=== PATIENT | male | born 1955 | race Caucasian/White ===

== ENCOUNTER 2019-12-02 07:25 | Inpatient (IN) | payer BC, OTHER ==
[~2019-12-02 07:25] MED LIST: CEFAZOLIN 2 GM/D5W RTU 2 GM/50 ML RTUPB IV PRN; LACTATED RINGERS 1000 ML IV PRN; LIDOCAINE 0.5% INJ-PF (5 MG/ML) 50 ML SDV SUBCUT PRN; VANCOMYCIN HCL 1,000 MG in DEXTROSE 5%-WATER 250 ML IV PRN
[2019-12-02] MEDS ORDERED: CELECOXIB 200 MG CAPSULE ONE (08:03)
[2019-12-02] MEDS ORDERED: TRAMADOL HCL 50 MG TABLET ONE (08:03)
[2019-12-02] MEDS ORDERED: CEFAZOLIN 2 GM/D5W RTU 2 GM/50 ML RTUPB IV ONE (08:03)
[2019-12-02] MEDS ORDERED: ACETAMINOPHEN 325 MG TABLET ONE (08:03)
[2019-12-02] MEDS ORDERED: SCOPOLAMINE HYDROBROMIDE 1.5 MG PATCH.TD72 ONE (08:04)
[2019-12-02] MEDS ORDERED: GABAPENTIN 100 MG CAPSULE ONE (08:04)
[2019-12-02] MEDS ORDERED: OXYCODONE HCL SR 10 MG TABLET PO ONE (08:04)
[2019-12-02 08:34] LABS: ALBUMIN 4.5 g/dL (3.5-5.0); C-REACTIVE PROTEIN 9.3 mg/L (<10.0); POTASSIUM 4.5 mmol/L (3.6-5.0)
--- NOTE | 2019-12-02 08:49 | RADIOLOGY REPORT (SQ) ---
EXAM DESCRIPTION: CHEST SINGLE VIEW IMAGES COMPLETED DATE/TIME: 12/02/2019 8:37 am REASON FOR STUDY: PRE OP COMPARISON: None. EXAM PARAMETERS: NUMBER OF VIEWS: One view. TECHNIQUE: Single frontal radiographic view of the chest acquired. RADIATION DOSE: NA LIMITATIONS: None. FINDINGS: LUNGS AND PLEURA: No opacities, masses or pneumothorax. No pleural effusion. MEDIASTINUM AND HILAR STRUCTURES: No masses. Contour normal. HEART AND VASCULAR STRUCTURES: Heart normal in size. Normal vasculature. BONES: No acute findings. HARDWARE: None in the chest. OTHER: No other significant finding. IMPRESSION: NO ACUTE RADIOGRAPHIC FINDING IN THE CHEST. TECHNICAL DOCUMENTATION: JOB ID: [id number] 2010 [employer]- All Rights Reserved Reading location - IP/workstation name: [email or web address]
[2019-12-02 09:23] LABS: APPEARANCE,URINE CLEAR; BILIRUBIN,URINE NEGATIVE (NEGATIVE); COLOR,URINE YELLOW; GLUCOSE, URINE NEGATIVE (NEGATIVE); KETONES,URINE NEGATIVE (NEGATIVE); LEUKOCYTE ESTERASE,URINE NEGATIVE (NEGATIVE); NITRITE,URINE NEGATIVE (NEGATIVE); PROTEIN,URINE NEGATIVE (NEGATIVE); URINE SPECIFIC GRAVITY 1.023; UROBILINOGEN,URINE NEGATIVE mg/dL (<2.0)
[2019-12-02 09:26] LABS: ADD MANUAL MICROSCOPIC YES; RBC,URINE 0-1 /HPF
[2019-12-02 09:27] LABS: BACTERIA,URINE TRACE /HPF
[2019-12-02] MEDS ORDERED: KETAMINE HCL INJ 500 MG/10 ML VIAL ONE (09:49)
[2019-12-02] MEDS ORDERED: FENTANYL CITRATE INJ/PF 100 MCG/2 ML AMPUL ONE (09:50)
[2019-12-02] MEDS ORDERED: MIDAZOLAM 2 MG/2 ML INJ ONE (09:50)
[2019-12-02] MEDS ORDERED: ONDANSETRON HCL INJ/PF 4 MG/2 ML SDV ONE (09:51)
[2019-12-02] MEDS ORDERED: EPHEDRINE SULFATE INJ 50 MG/1 ML AMPULE ONE (09:51)
[2019-12-02] MEDS ORDERED: PROPOFOL INJ 200 MG/20 ML VIAL IV ONE (09:51)
[2019-12-02] MEDS ORDERED: BUPIVACAINE HCL 0.25 % INJ/PF (2.5 MG/1 ML) 30 ML VIAL ONE (09:56)
[2019-12-02] MEDS ORDERED: LIDOCAINE 1% INJ-PF (10 MG/ML) 30 ML SDV ONE (09:56)
[2019-12-02] MEDS ORDERED: VANCOMYCIN HCL INJ 1000 MG VIAL ONE (09:56)
[2019-12-02] MEDS ORDERED: KETOROLAC TROMETHAMINE INJ/PF 30 MG/1 ML SDV ONE (09:57)
[2019-12-02] MEDS ORDERED: TRANEXAMIC ACID INJ/PF 1,000 MG/10 ML SDV ONE (10:04)
[2019-12-02] MEDS ORDERED: MEPERIDINE HCL/PF INJ 25 MG/1 ML DISP.SYRIN IV PRN (11:39)
[2019-12-02] MEDS ORDERED: DIPHENHYDRAMINE HCL 50 MG/ML VIAL IV PRN (11:39)
[2019-12-02] MEDS ORDERED: PROMETHAZINE HCL INJ 25 MG/1 ML VIAL IV PRN ×2 (11:39)
[2019-12-02] MEDS ORDERED: ONDANSETRON HCL INJ/PF 4 MG/2 ML SDV IV PRN (11:39)
[2019-12-02] MEDS ORDERED: OXYCODONE-ACETAMINOPHEN 5-325 MG TABLET PO PRN ×2 (11:39)
[2019-12-02] MEDS ORDERED: MORPHINE SULFATE 10 MG/ML INJ IV PRN ×3 (11:39→13:11)
[2019-12-02] MEDS ORDERED: FENTANYL CITRATE INJ/PF 100 MCG/2 ML AMPUL IV PRN ×3 (11:39)
[2019-12-02] MEDS ORDERED: ROPIVACAINE HCL 0.5% INJ/PF (5 MG/1 ML) 30 ML SDV ONE (11:59)
[2019-12-02] MEDS: FENTANYL CITRATE INJ/PF 100 MCG/2 ML AMPUL ONE ×2 (13:05→13:15)
[2019-12-02] MEDS ORDERED: DOCUSATE SODIUM 100 MG CAPSULE PO PRN (13:11)
[2019-12-02] MEDS ORDERED: TRANEXAMIC ACID INJ/PF 1,000 MG/10 ML SDV IV ONE (13:11)
[2019-12-02] MEDS ORDERED: ZOLPIDEM TARTRATE 5 MG TABLET PO PRN (13:11)
[2019-12-02] MEDS ORDERED: DIPHENHYDRAMINE HCL 25 MG CAPSULE PO PRN (13:11)
[2019-12-02] MEDS ORDERED: PANTOPRAZOLE SODIUM 20 MG TABLET.DR PO ONE (13:11)
[2019-12-02] MEDS ORDERED: OXYCODONE HCL IR 5 MG TABLET PO PRN ×4 (13:11)
[2019-12-02] MEDS ORDERED: ONDANSETRON 4 MG TAB.RAPDIS PO PRN (13:11)
[2019-12-02] MEDS ORDERED: NORMAL SALINE 1000 ML 1,000 ML IV ONE (13:11)
[2019-12-02] MEDS ORDERED: DEXAMETHASONE SOD PHOS INJ 10 MG/1 ML VIAL IV ONE (13:11)
--- NOTE | 2019-12-02 13:11 | Operative Report ---
Operative Report DATE OF SURGERY: 12/02/19 PREOPERATIVE DIAGNOSIS: Severe right hip primary osteoarthritis POSTOPERATIVE DIAGNOSIS: Severe right hip primary osteoarthritis OPERATION: Right total hip arthroplasty SURGEON: ADWOA DESIR JR COMPLICATIONS: None ESTIMATED BLOOD LOSS: 250 cc PROCEDURE: Implants: Lore Accolade 2 size 4 femoral stem with lateral offset, a Trident 2 size 52 cup, and a standard liner, a -2.5 neck length 36 mm ceramic head BRIEF HISTORY: 64 year old male with severe degenerative arthritis of right hip, which has failed conservative treatment and has elected for a total hip arthroplasty. Risks include but are not limited to bleeding, infection, anesthesia, , injury to nerve or vessel, pain, scar, leg length inequality, dislocation, future surgery, and blood clots. Patient read through the pre-op counseling form and signed and consented for surgery on their right hip. OPERATIVE PROCEDURE: Patient was brought to the operating room on and underwent spinal anesthesia. 2 g of Ancef and 1 g of vancomycin was given. After proper anesthesia was obtained, patient was positioned, padded, prepped, and draped in the usual sterile fashion on the operating room table. Appropriate time out was performed. An anterior approach to the hip was undertaken with meticulous hemostasis through the deep interval. A capsulectomy was performed followed by exposure of the femoral neck. The femoral neck was cut in line with the femoral broach and the femoral head was removed. The acetabulum was then exposed with three retractors in an atraumatic fashion. Soft tissue and osteophytes were removed. Medialization reaming was performed followed by anatomic reaming up to accept a 52 mm acetabulum. Wound was irrigated with dilute betadyne solution and the 52 mm acetabulum was impacted into correct position and stability checked by manipulating the impaction handle which rocked the pelvis. A standard liner was impacted into the shell with good stability. Potential impinging osteophytes were removed. Attention was then directed toward the femur, which was exposed with two retractors in an atraumatic fashion. A bone hook was placed to carefully perform releases along the superior capsule until the femur was safely delivered through the wound. A box printer was utilized followed by lateralization rasping and then broaching up to accept a 4 femur. With a standard offset neck and a -5 head, stability was good in flexion and extension with with slight subluxation on external rotation and gentle traction, near equal leg lengths. The real lateral offset femur was impacted into a copiously irrigated femoral canal. A 36 mm ceramic -2.5 neck length head was impacted on a clean dry femoral taper. The hip was irrigated and reduced, further irrigation with antibiotic solution, betadine solution, then antibiotic solution. Bleeders were coagulated with bovie cautery. The fascia was then closed with number 2 Stratofix; the subcutaneous tissue closed with interrupted inverted 2-0 monocryl then running 3-0 monocryl subcuticular. A silver dressing was then applied. All needle sponge and instrument counts were correct. Patient was awakened from sedation anesthesia and taken to recovery room in good condition. The patient has a BMI of 40.3. Due to increased time and effort with the surgery as well as the increased effort of manipulating a large leg, gaining adequate exposure through increased soft tissue, appropriately retracting to ensure lack of trauma to the surrounding soft tissues, and taking extra effort to orient his incision to stay out of the way of his pannus and hip crease, we are billing a 22 modifier.
--- NOTE | 2019-12-02 13:55 | EKG REPORT ---
SEVERITY:- ABNORMAL ECG - SINUS BRADYCARDIA NONSPECIFIC INTRAVENTRICULAR CONDUCTION DELAY : Confirmed by: Abdias Zendejas MD 02-Dec-2019 13:54:27
[2019-12-02] MEDS ORDERED: CEFAZOLIN 2 GM/D5W RTU 2 GM/50 ML RTUPB IV SCH (14:00)
[2019-12-02] MEDS ORDERED: LIDOCAINE 2% INJ-PF (20 MG/ML) 2 ML AMPUL ONE (15:02)
[2019-12-02] MEDS ORDERED: ROCURONIUM BROMIDE INJ 50 MG/5 ML VIAL IV ONE (15:02)
[2019-12-02] MEDS ORDERED: SUCCINYLCHOLINE CHLORIDE INJ 200 MG/10 ML VIAL ONE (15:02)
[2019-12-02] MEDS ORDERED: GLYCOPYRROLATE 1 MG/5 ML VIAL ONE (15:02)
[2019-12-02] MEDS ORDERED: NEOSTIGMINE METHYLSULFATE 10 MG/10 ML VIAL ONE (15:02)
--- NOTE | 2019-12-02 15:02 | RADIOLOGY REPORT (SQ) ---
EXAM DESCRIPTION: HIP RIGHT AP/LATERAL IMAGES COMPLETED DATE/TIME: 12/02/2019 1:36 pm REASON FOR STUDY: post op M16.11 UNILATERAL PRIMARY OSTEOARTHRITIS, RIGHT HIP COMPARISON: None. NUMBER OF VIEWS: Two views. TECHNIQUE: AP pelvis and additional frog legview of the right hip. LIMITATIONS: None. FINDINGS: MINERALIZATION: Normal. RIGHT HIP: Right hip arthroplasty in good position. LEFT HIP: No fracture or dislocation. No worrisome bone lesions. Limited views. PUBIS AND ISCHIUM: No fracture. PELVIS: No fracture. SACRUM: No fracture or dislocation. No worrisome bone lesions. LOWER LUMBAR SPINE: No fracture or dislocation. No worrisome bone lesions. No significant disc disea se. SOFT TISSUES: No findings. OTHER: No other significant finding. IMPRESSION: Right hip arthroplasty. No acute finding. TECHNICAL DOCUMENTATION: JOB ID: [id number] 2010 [employer]- All Rights Reserved Reading location - IP/workstation name: [email or web address]
--- NOTE | 2019-12-02 15:35 | RADIOLOGY REPORT (SQ) ---
EXAM DESCRIPTION: NO CHG FLUORO; HIP IN OPERATING RM IMAGES COMPLETED DATE/TIME: 12/02/2019 3:25 pm REASON FOR STUDY: RIGHT HIP TOTAL ARTHROPLASTY ASSISTED WITH FLUORO IN OR COMPARISON: None. FLUOROSCOPY TIME: No measurable fluoro time recorded. 2 Images saved to PACS LIMITATIONS: None. PROCEDURE: Right hip arthroplasty. FINDINGS: Images from fluoro document the procedure. IMPRESSION: Total arthroplasty the right hip assisted with fluoro. Refer to operative note for furt her information. COMMENT: PQRS 6045F: Fluoroscopy time of the procedure is documented in the report. TECHNICAL DOCUMENTATION: JOB ID: [id number] 2010 [employer]- All Rights Reserved Reading location - IP/workstation name: [email or web address]
--- NOTE | 2019-12-02 15:35 | RADIOLOGY REPORT (SQ) ---
EXAM DESCRIPTION: NO CHG FLUORO; HIP IN OPERATING RM IMAGES COMPLETED DATE/TIME: 12/02/2019 3:25 pm REASON FOR STUDY: RIGHT HIP TOTAL ARTHROPLASTY ASSISTED WITH FLUORO IN OR COMPARISON: None. FLUOROSCOPY TIME: No measurable fluoro time recorded. 2 Images saved to PACS LIMITATIONS: None. PROCEDURE: Right hip arthroplasty. FINDINGS: Images from fluoro document the procedure. IMPRESSION: Total arthroplasty the right hip assisted with fluoro. Refer to operative note for furt her information. COMMENT: PQRS 6045F: Fluoroscopy time of the procedure is documented in the report. TECHNICAL DOCUMENTATION: JOB ID: [id number] 2010 [employer]- All Rights Reserved Reading location - IP/workstation name: [email or web address]
[2019-12-02] MEDS: KETOROLAC TROMETHAMINE INJ/PF 30 MG/1 ML SDV IV SCH ×2 (16:52→22:02)
[2019-12-02] MEDS: ACETAMINOPHEN 325 MG TABLET PO SCH ×2 (16:53→22:02)
[2019-12-02] MEDS: METFORMIN HCL 500 MG TABLET PO SCH (18:21)
[2019-12-02] MEDS: GABAPENTIN 100 MG CAPSULE PO SCH (22:02)
[2019-12-02] MEDS: CEFAZOLIN SODIUM 2 GM in DEXTROSE 5%-WATER 100 ML IV SCH (23:31)
[2019-12-03] MEDS: KETOROLAC TROMETHAMINE INJ/PF 30 MG/1 ML SDV IV SCH ×2 (05:33→14:22)
[2019-12-03] MEDS: CEFAZOLIN SODIUM 2 GM in DEXTROSE 5%-WATER 100 ML IV SCH (05:33)
[2019-12-03] MEDS: ACETAMINOPHEN 325 MG TABLET PO SCH ×3 (05:34→21:00)
[2019-12-03] MEDS ORDERED: TAMSULOSIN HCL 0.4 MG CAP.SR.24H PO ONE ×3 (07:14→15:00)
--- NOTE | 2019-12-03 07:17 | PDOC PROGRESS REPORT ---
Subjective Progress Note for:: 12/03/19 Subjective:: The patient is doing well this AM. Pain is present but not out of proportion and well controlled on their current medications. There are no new symptoms or overnight events. Overall they are felling well without complaints. They deny chest pain, shortness of breath or motor or sensory loss. Patient does have urinary retention overnight. He does not have a history of urinary retention. Reports urgency to void this morning. Reason For Visit: RIGHT TOTAL HIP ARTHROPLASTY Physical Exam Vital Signs: Temp Pulse Resp BP Pulse Ox 97.4 F 65 18 93/49 L 99 12/03/19 03:36 12/03/19 03:36 12/03/19 03:36 12/03/19 03:36 12/03/19 03:36 Intake & Output 12/02/19 12/03/19 12/04/19 06:59 06:59 06:59 Intake Total 5814 Output Total 25 Balance 5789 Weight 257 kg 116.8 kg Physical Exam: Right lower extremity -Pulses 2+ distally -Compartments soft -Sensation grossly intact to L3-4-5 S1 -Motor grossly intact to EHL TA gastroc and quad Wound clean dry and intact No acute distress alert and oriented x3 Results Laboratory Results: 12/02/19 08:03 12/02/19 12/02/19 12/02/19 08:03 08:03 08:49 Potassium 4.5 Glucose 100 C-Reactive Protein 9.3 Albumin 4.5 Urine Color YELLOW Urine Appearance CLEAR Urine pH 6.0 Ur Specific [place] 1.023 Urine Protein NEGATIVE Urine Glucose (UA) NEGATIVE Urine Ketones NEGATIVE Urine Blood NEGATIVE Urine Nitrite NEGATIVE Ur Leukocyte Esterase NEGATIVE Ur Squamous Epith Cells RARE Blood Type O NEGATIVE Antibody Screen NEGATIVE Impressions: Chest X-Ray 12/02/19 00:00 IMPRESSION: NO ACUTE RADIOGRAPHIC FINDING IN THE CHEST. Fluoroscopy 12/02/19 00:00 IMPRESSION: Total arthroplasty the right hip assisted with fluoro. Refer to operative note for further information. Hip X-Ray 12/02/19 00:00 IMPRESSION: Total arthroplasty the right hip assisted with fluoro. Refer to operative note for further information. Hip/Pelvis X-Ray 12/02/19 13:12 IMPRESSION: Right hip arthroplasty. No acute finding. Assessment & Plan - Diagnosis (1) Status post total hip replacement, right Is this a current diagnosis for this admission?: Yes Plan: - 2 doses of Ancef postoperatively q 8 hours to complete 24 hours perioperatively -Weightbearing as tolerated, no precautions, encourage out of bed ANALIA for ADL training - PT/OT -We will plan on discharge after patient voids. - Keep knee extended in bed, rolled towel under the ankle to obtain full extension -aspirin 325 daily for DVT prophylaxis for 6 weeks -multimodal pain management to avoid excessive narcotics, including gabapentin, tramadol, Toradol, acetaminophen. -Dressing should not be removed for 7 to 10 days until seen in the office -May shower with the dressing intact, if it starts to come off she should not get the incision wet. -Follow-up with Dr. Terrance Garcia, orthopedic surgeon at [facility] for surgery, in 10 days. Call for an appointment. . [address], [place] [address] - Time Time Spent with patient: Less than 15 minutes
[2019-12-03] MEDS: TRAMADOL HCL 50 MG TABLET PO PRN (09:57)
[2019-12-03] MEDS: GABAPENTIN 100 MG CAPSULE PO SCH ×2 (09:58→21:00)
[2019-12-03] MEDS: METFORMIN HCL 500 MG TABLET PO SCH ×2 (09:59→17:27)
[2019-12-03] MEDS ORDERED: CHOLECALCIFEROL (D3) 1,000 UNIT (25 MCG) TABLET PO SCH (10:00)
[2019-12-03] MEDS ORDERED: PANTOPRAZOLE SODIUM 20 MG TABLET.DR PO SCH (10:00)
[2019-12-03] MEDS ORDERED: LISINOPRIL 10 MG TABLET PO SCH (10:00)
[2019-12-03] MEDS ORDERED: POLYETHYLENE GLYCOL 3350 POWDER 17 GM/1 PACKET PO SCH (10:00)
[2019-12-03] MEDS: FUROSEMIDE 40 MG TABLET PO SCH (10:00)
[2019-12-03] MEDS ORDERED: CELECOXIB 200 MG CAPSULE PO SCH (10:00)
[2019-12-03] MEDS ORDERED: ASPIRIN 325 MG TABLET PO SCH (10:00)
[2019-12-03] MEDS ORDERED: ASCORBIC ACID 500 MG TABLET PO SCH (10:00)
[2019-12-03] MEDS ORDERED: MULTIVITAMIN TABLET PO SCH (10:00)
[2019-12-03] MEDS ORDERED: (PENDING PHARMACY ID) (Esomeprazole Magnesium [Nexium] 20 MG) PO SCH (10:00)
--- NOTE | 2019-12-03 16:01 | PDOC PROGRESS REPORT ---
Subjective Progress Note for:: 12/03/19 Subjective:: Patient status post right total hip replacement. Overall doing well. Pain controlled. Denies fever chills or sweats. However has been having issues with voiding. Otherwise no complaints. Reason For Visit: RIGHT TOTAL HIP ARTHROPLASTY Physical Exam Vital Signs: Temp Pulse Resp BP Pulse Ox 97.2 F 80 12 151/86 H 96 12/03/19 12:56 12/03/19 12:56 12/03/19 12:56 12/03/19 12:56 12/03/19 12:56 Intake & Output 12/02/19 12/03/19 12/04/19 06:59 06:59 06:59 Intake Total 5814 356 Output Total 25 850 Balance 5789 -494 Weight 257 kg 116.8 kg Musculoskeletal exam: PRESENT: other - Right hip: Dressing clean/dry/intact no erythema or drainage. Moderate thigh swelling without change, intact plantarflexion/dorsiflexion. No sensory deficits. No calf tenderness. Results Laboratory Results: 12/02/19 08:03 Impressions: Chest X-Ray 12/02/19 00:00 IMPRESSION: NO ACUTE RADIOGRAPHIC FINDING IN THE CHEST. Fluoroscopy 12/02/19 00:00 IMPRESSION: Total arthroplasty the right hip assisted with fluoro. Refer to operative note for further information. Hip X-Ray 12/02/19 00:00 IMPRESSION: Total arthroplasty the right hip assisted with fluoro. Refer to operative note for further information. Hip/Pelvis X-Ray 12/02/19 13:12 IMPRESSION: Right hip arthroplasty. No acute finding. Assessment & Plan - Diagnosis (1) Urinary retention Is this a current diagnosis for this admission?: Yes (2) Status post total hip replacement, right Is this a current diagnosis for this admission?: Yes Plan: Patient status post right total hip replacement. Overall doing well in terms of his hip replacement has been ambulating with good results pain currently controlled unfortunately he has developed urinary retention postoperative likely secondary to anesthesia. At this point because of his urinary retention and no prior history of such I have recommended inpatient admission until patient's urinary tension resolves. Will consider consultation to the hospitalist if patient shows no improvement. - Time Time Spent with patient: Less than 15 minutes
[2019-12-04] MEDS: TRAMADOL HCL 50 MG TABLET PO PRN (02:52)
[2019-12-04] MEDS: ACETAMINOPHEN 325 MG TABLET PO SCH (06:21)
[2019-12-04 08:18] VITALS: BP 105/56
[2019-12-04] MEDS: FUROSEMIDE 40 MG TABLET PO SCH (08:21)
[2019-12-04] MEDS: METFORMIN HCL 500 MG TABLET PO SCH (08:21)
--- NOTE | 2019-12-04 08:46 | PDOC PROGRESS REPORT ---
Subjective Progress Note for:: 12/04/19 Subjective:: Patient doing well this morning. Has voided multiple times overnight. No further issues at this time. Reports doing well with getting out of bed and ultimately having a good recovery for his right hip. He remained in house yesterday due to urinary retention which appears to have resolved. Reason For Visit: RIGHT TOTAL HIP ARTHROPLASTY Physical Exam Vital Signs: Temp Pulse Resp BP Pulse Ox 97.8 F 77 17 105/56 L 100 12/04/19 07:56 12/04/19 07:56 12/04/19 07:56 12/04/19 07:56 12/04/19 07:56 Intake & Output 12/03/19 12/04/19 12/05/19 06:59 06:59 06:59 Intake Total 5814 1756 Output Total 25 850 Balance 5789 906 Weight 116.8 kg 116 kg Physical Exam: No acute distress alert and oriented x3 Right lower extremity -Pulses 2+ distally -Compartments soft -Sensation grossly intact to L3-4-5 S1 -Motor grossly intact to EHL TA gastroc and quad Dressing clean dry and intact, mild spotting. Results Laboratory Results: 12/02/19 08:03 Impressions: Chest X-Ray 12/02/19 00:00 IMPRESSION: NO ACUTE RADIOGRAPHIC FINDING IN THE CHEST. Fluoroscopy 12/02/19 00:00 IMPRESSION: Total arthroplasty the right hip assisted with fluoro. Refer to o perative note for further information. Hip X-Ray 12/02/19 00:00 IMPRESSION: Total arthroplasty the right hip assisted with fluoro. Refer to operative note for further information. Hip/Pelvis X-Ray 12/02/19 13:12 IMPRESSION: Right hip arthroplasty. No acute finding. Assessment & Plan - Diagnosis (1) Status post total hip replacement, right Is this a current diagnosis for this admission?: Yes Plan: -Plan for discharge home today. -Weightbearing as tolerated, no precautions, encourage out of bed ANALIA for ADL training - PT/OT - Keep knee extended in bed, rolled towel under the ankle to obtain full extension -aspirin 325 daily for DVT prophylaxis for 6 weeks -multimodal pain management to avoid excessive narcotics, including gabapentin, tramadol, Toradol, acetaminophen. -Dressing should not be removed for 7 to 10 days until seen in the office -May shower with the dressing intact, if it starts to come off she should not get the incision wet. -Follow-up with Dr. Terrance Garcia, orthopedic surgeon at [facility] surgery, in 10 days. Call for an appointment. . [address], [place] [address] - Time Time Spent with patient: Less than 15 minutes
--- NOTE | 2019-12-04 08:54 | PDOC DISCHARGE SUMMARY ---
Impression - Admit/DC Date/PCP Discharge Date: 12/04/19 - Discharge Diagnosis (1) Status post total hip replacement, right Is this a current diagnosis for this admission?: Yes - Assessment Summary: Mr. James is a very pleasant 64-year-old male who presented to my clinic with chronic right hip pain that is been going on for over a year. After thorough work-up and attempts at conservative treatment including activity modification and [id number] pain medication, they were having severe difficulty with ambulation and was over the counter pain medication for daily activity. They found the pain debilitating and decreasing thier quality of life as they were unable to perform activities of daily living such as ambulating short distances and getting in and out of the car. After a thorough work-up including x-rays t hat demonstrated joint space narrowing, [id number] contact, subchondral sclerosis, and osteophyte formation as well as discussing risks and benefits and other treatment options, the patient elected to proceed with a right total hip arthroplasty. They were brought to the operating room on 12/02/2019 and underwent a right total hip and tolerated procedure very well with out complication. They were then admitted to the hospital floor for postoperative medical management, monitoring, and pain control. The patient initially desired to be discharged home on postoperative day 0. However following surgery he had urinary retention and was unable to pee requiring a straight cath. This did not resolve by the end of the day and he ended up staying the night for ongoing symptoms. The following day he continued to improve in regards to his right hip. On postoperative day #1 they were ambulating well with physical therapy, to the degree that they approved them for discharge home. However he still had urinary retention and required further straight cath for voiding. Tamsulosin was provided that morning. The issue persisted through the evening and the patient required admission for ongoing management of his urinary retention. The following morning on postoperative day 2, the patient had reported voiding well beginning the night before and through the day. He needed no further straight cath and reported his hip recovery was going great and he had been able to walk well on his own multiple times. They were discharged home on postoperative day #2, 12/04/2019. All detailed instructions and prescriptions were provided to the patient prior to admission on the year prior office visit. - Additional Information Discharge Diet: As Tolerated Discharge Activity: Activity As Tolerated, Balance Activity w/Rest, No Driving, Keep Legs Elevated, No tub bath, Walk Frequently Referrals: ADWOA DESIR JR, DO [ACTIVE PROVISIONAL STAFF] - 12/13/19 8:40 am Prescriptions: Tamsulosin HCl [Flomax 0.4 mg Cap.sr] 0.4 mg PO DAILYP PRN 30 Days #30 cap.sr.24h PRN Reason: This Med Is Not "Prn" Home Medications: Ascorbic Acid [Vitamin C 500 mg Tablet] 500 mg PO DAILY 11/25/19 Cholecalciferol (Vitamin D3) [Vitamin D3 1000 Unit Tablet] 1,000 unit PO DAILY 11/25/19 Esomeprazole Magnesium [Nexium] 20 mg PO DAILY 11/25/19 Furosemide [Lasix 40 mg Tablet] 40 mg PO QAM 11/25/19 Lisinopril [Zestril] 10 mg PO DAILY 11/25/19 Metformin HCl [Glucophage] 1,000 mg PO DAILY 11/25/19 Multivitamin [Multivitamins] 1 each PO DAILY 11/25/19 Acetaminophen [Tylenol 325 mg Tablet] 975 mg PO Q8 tablet 12/02/19 Aspirin [Aspirin 325 mg Tablet] 325 mg PO DAILY tablet 12/02/19 Celecoxib [Celebrex 200 mg Capsule] 200 mg PO DAILY capsule 12/02/19 Gabapentin [Neurontin 100 mg Capsule] 100 mg PO Q12 capsule 12/02/19 Oxycodone HCl [Oxy-Ir 5 mg Tablet] 5 mg PO Q4HP PRN tablet 12/02/19 Tramadol HCl [Ultram 50 mg Tablet] 50 mg PO Q4HP PRN tablet 12/02/19 Tamsulosin HCl [Flomax 0.4 mg Cap.sr] 0.4 mg PO DAILYP PRN 30 Days #30 cap.sr.24h 12/04/19 History of Present Illiness History of Present Illness: JAYCOB JAMES is a 64 year old male Physical Exam Vital Signs: Temp Pulse Resp BP Pulse Ox 97.8 F 77 17 105/56 L 100 12/04/19 07:56 12/04/19 07:56 12/04/19 07:56 12/04/19 07:56 12/04/19 07:56 Intake & Output 12/03/19 12/04/19 12/05/19 06:59 06:59 06:59 Intake Total 5814 1756 Output Total 25 850 Balance 5701 906 Weight 116.8 kg 116 kg Results Laboratory Results: ESR 20 mm/hr (0-20) 12/02/19 08:03 Potassium 4.5 mmol/L (3.6-5.0) 12/02/19 08:03 Glucose 100 mg/dL (75-110) 12/02/19 08:03 C-Reactive Protein 9.3 mg/L (<10.0) 12/02/19 08:03 Albumin 4.5 g/dL (3.5-5.0) 12/02/19 08:03 Vitamin D 25-Hydroxy 61.1 ng/mL (14.7-68.3) 12/02/19 08:03 Urine Color YELLOW 12/02/19 08:49 Urine Appearance CLEAR 12/02/19 08:49 Urine pH 6.0 (5.0-9.0) 12/02/19 08:49 Ur Specific [place] 1.023 12/02/19 08:49 Urine Protein NEGATIVE mg/dL (NEGATIVE) 12/02/19 08:49 Urine Glucose (UA) NEGATIVE mg/dL (NEGATIVE) 12/02/19 08:49 Urine Ketones NEGATIVE mg/dL (NEGATIVE) 12/02/19 08:49 Urine Blood NEGATIVE (NEGATIVE) 12/02/19 08:49 Urine Nitrite NEGATIVE (NEGATIVE) 12/02/19 08:49 Urine Bilirubin NEGATIVE (NEGATIVE) 12/02/19 08:49 Urine Urobilinogen NEGATIVE mg/dL (<2.0) 12/02/19 08:49 Ur Leukocyte Esterase NEGATIVE (NEGATIVE) 12/02/19 08:49 Urine RBC 0-1 /HPF 12/02/19 08:49 Ur Squamous Epith Cells RARE /HPF 12/02/19 08:49 Urine Bacteria TRACE /HPF 12/02/19 08:49 Urine Ascorbic Acid 40 (NEGATIVE) H 12/02/19 08:49 COVID-19 Source NASOPHARYNGEAL 11/25/19 09:24 COVID-19 (JOEY) NOT DETECTED 11/25/19 09:24 Blood Type O NEGATIVE 12/02/19 08:03 Antibody Screen NEGATIVE 12/02/19 08:03 Impressions: Chest X-Ray 12/02/19 00:00 IMPRESSION: NO ACUTE RADIOGRAPHIC FINDING IN THE CHEST. Fluoroscopy 12/02/19 00:00 IMPRESSION: Total arthroplasty the right hip assisted with fluoro. Refer to operative note for further information. Hip X-Ray 12/02/19 00:00 IMPRESSION: Total arthroplasty the right hip assisted with fluoro. Refer to operative note for further information. Hip/Pelvis X-Ray 12/02/19 13:12 IMPRESSION: Right hip arthroplasty. No acute finding. Stroke Is this a Stroke Patient?: No Acute Heart Failure - Is this a Heart Failure Patient?: No
[2019-12-04] MEDS ORDERED: TAMSULOSIN HCL 0.4 MG CAP.SR.24H PO SCH (10:00)
== END 2019-12-04 08:15 | disposition home or self-care (01) | DRG 470 ==
LOC: OROUT 07:25 → 4S 07:25 → EDSTATUS 09:45 → OROUT 14:26 → 4S 14:26 → OBSVTOIN 12-03 14:16 → OROUT 12-04 08:15 → 4S 12-04 08:15
PROVIDERS: ADMIT Orthopaedic Surgery; ATTEND Orthopaedic Surgery
PROC: 0SR904Z Replacement of Right Hip Joint with Ceramic on Polyethylene Synthetic Substitute, Open Approach (ICD-10-PCS; principal; 2019-12-02 09:45)
DX: M16.11 Unilateral primary osteoarthritis, right hip (principal); Z68.41 Body mass index [BMI] 40.0-44.9, adult; Z96.641 Presence of right artificial hip joint; D64.9 Anemia, unspecified; E11.9 Type 2 diabetes mellitus without complications; G47.30 Sleep apnea, unspecified; I10 Essential (primary) hypertension; E66.01 Morbid (severe) obesity due to excess calories; R33.9 Retention of urine, unspecified; R39.15 Urgency of urination; N99.89 Other postprocedural complications and disorders of genitourinary system; Y83.8 Other surgical procedures as the cause of abnormal reaction of the patient, or of later complication, without mention of misadventure at the time of the procedure; K21.9 Gastro-esophageal reflux disease without esophagitis; Z79.899 Other long term (current) drug therapy; Z79.84 Long term (current) use of oral hypoglycemic drugs
CPT/HCPCS: 01214; 36415; 64447; 71045; 76942; 81001; 82040; 82306; 82947; 84132; 85652; 86140; 86850; 86900; 86901; 87635; 93005; 93010; C1776; C9803; G0378; J0330; J0690; J1885; J2250; J2405; J2704; J2710; J2795; J3010; J3370; J3490; J7060; J7120